=== PATIENT | male | born 1985 | race Hispanic/Latino ===

== ENCOUNTER 2017-02-06 00:25 | Emergency (ER) | payer OTHER ==
[2017-02-06 00:44] VITALS: BP 115/84
[2017-02-06] MEDS ORDERED: NACL 0.9% 500 ML IR ONE (02:18)
[2017-02-06] MEDS ORDERED: NACL 0.9% IR ONE (02:30)
--- NOTE | 2017-02-06 02:33 | Emergency Department Report ---
ED Laceration HPI - HPI Chief Complaint: Laceration/Recheck/Suture Stated Complaint: HEAD LAC Time Seen by Provider: 02/06/17 01:22 Location: Head Severity: mild Tetanus Status: Up to Date Laceration Symptoms: Yes Pain, No Foreign Body Sensation, No Numbness, No Weakness Other History: Patient is a 31-year-old male presents to ED complaining of laceration to his frontal scalp region. Patient states he was working on an engine when he raised his head then hit it on the engine door. Patient denies loss of consciousness after incident. Patient is able to get up after incident no nausea no vomiting. Patient states mild he's taken a Motrin after the incident to prevent an headache. He states he is up-to-date on his tetanus shot and got one last area. He denies suicide shows sinus vomitingoranyotherproblems ED Review of Systems ROS: Stated complaint: HEAD LAC Other details as noted in HPI Constitutional: denies: chills, fever Eyes: denies: eye pain, eye discharge, vision change ENT: denies: ear pain, throat pain Respiratory: denies: cough, shortness of breath, wheezing Cardiovascular: denies: chest pain, palpitations Endocrine: no symptoms reported Gastrointestinal: denies: abdominal pain, nausea, diarrhea Genitourinary: denies: urgency, dysuria Musculoskeletal: denies: back pain, joint swelling, arthralgia Skin: denies: rash, lesions Neurological: denies: headache, weakness, paresthesias Psychiatric: denies: anxiety, depression Hematological/Lymphatic: denies: easy bleeding, easy bruising ED Past Medical Hx - Past Medical History Previous Medical History?: No - Surgical History Past Surgical History?: Yes Additional Surgical History: cyst removal, septorhinoplasty - Social History Smoking Status: Never Smoker Substance Use Type: Alcohol - Medications Home Medications: Home Medications Medication Instructions Recorded Confirmed Last Taken Type Clindamycin [Clindamycin CAP] 150 mg PO BID #10 capsule 02/06/17 Unknown Rx Ibuprofen [Motrin] 800 mg PO Q8HR PRN #30 tablet 02/06/17 Unknown Rx Laceration Physical Exam - Exam General: Vital signs noted. No distress. Alert and acting appropriately. Wound Length (cm): 1 Laceration Location: Head (frontal scalp region right) Full Body Front + Back: 1 - 1 cm supercial lac. no active bleed Laceration Exam: Yes Normal Distal CMS, No Foreign Body, No Exposed Tendon, Vessel, or Nerve, No Tendon Injury ED Course Vital Signs 02/06/17 00:38 Temperature 98.3 F Pulse Rate 67 Respiratory 16 Rate Blood Pressure 115/84 O2 Sat by Pulse 100 Oximetry ED Medical Decision Making - Medical Decision Making 31-year-old male presents to the frontal scalp laceration ED course: The #1cm laceration wound was prepped and draped in sterile fashion. Anesthesia was not needed as it was superficial The wound was irrigated with 50cc NS and explored. There were no foreign bodies The wound was reapproximated in Dermabond and sterile draped with sterile strips There was excellent reapproximation of the wound edges. The patient tolerated the procedure without complication. Vital signs are normal patient is in no acute distress Discussed percussion to go home on antibiotics and pain medication. Due to patient's parents that she was not able to give Keflex, clindamycin given stated. Discussed the patient to keep wound dry Critical care attestation.: If time is entered above; I have spent that time in minutes in the direct care of this critically ill patient, excluding procedure time. ED Disposition Clinical Impression: Laceration of scalp without complication Qualifiers: Encounter type: initial encounter Qualified Code(s): S01.01XA - Laceration without foreign body of scalp, initial encounter Disposition: DISCHARGED TO HOME OR SELFCARE Is pt being admited?: No Does the pt Need Aspirin: No Condition: Stable Instructions: Laceration (ED), Acute Wound Care (ED), Skin Adhesive Care (ED) Additional Instructions: Return to ED if any new symptoms such as dizziness, headache, nausea, vomiting. Take medication as prescribed. Follow-up with your Primary from physician Prescriptions: Clindamycin [Clindamycin CAP] 150 mg PO BID #10 capsule Ibuprofen [Motrin] 800 mg PO Q8HR PRN #30 tablet PRN Reason: Pain Referrals: PRIMARY CARE,MD [Primary Care Provider] - 3-5 Days [facility] [Outside] - 3-5 Days [facility] [Outside] - 3-5 Days [facility] [Outside] - 3-5 Days Forms: Accompanied Note, Work/School Release Form(ED) Time of Disposition: 02:35
== END 2017-02-06 02:53 | disposition home or self-care (01) ==
LOC: ED 00:25
DX: S01.01XA Laceration without foreign body of scalp, initial encounter (principal); W31.89XA Contact with other specified machinery, initial encounter; Y93.89 Activity, other specified; Y99.0 Civilian activity done for income or pay; Y92.89 Other specified places as the place of occurrence of the external cause